=== PATIENT | male | born 1985 | race Two or more races ===

== ENCOUNTER 2024-01-15 20:05 | Emergency (ER) | payer OTHER ==
[~2024-01-15] VITALS: Ht 172.7 cm; Wt 72.6 kg
[2024-01-15] MEDS ORDERED: TDAP [DIPH/PERTUSSIS/TET] 0.5 ML VIAL IM ONE (21:00)
[2024-01-15] MEDS: TDAP [DIPH/PERTUSSIS/TET] 0.5 ML VIAL IM ONE (21:03)
[2024-01-15 21:22] VITALS: BP 132/89; TEMP 98.2; O2SAT 96
== END 2024-01-15 21:23 ==
LOC: ER 20:30
DX: S01.81XA Laceration without foreign body of other part of head, initial encounter (principal); Y04.2XXA Assault by strike against or bumped into by another person, initial encounter; Y93.89 Activity, other specified; Y92.89 Other specified places as the place of occurrence of the external cause; Y99.8 Other external cause status
CPT/HCPCS: 90715